=== PATIENT | female | born 1985 | race Caucasian/White ===

== ENCOUNTER 2017-11-29 07:26 | Day surgery (SDC) | payer BC ==
[2017-11-29 08:08] VITALS: BMI 19.7
[2017-11-29 08:22] VITALS: BP 102/73; TEMP 97.6
--- NOTE | 2017-11-29 09:22 | PDOC.FPROB ---
FMR OB H&P: HPI - History of Present Illness Chief Complaint: Abdominal pain Indentification: LLQ History of Present Illness: 32 yo @ 16.4 by IVF w h/o 7cm posterior uterine fibroid (which has been stable in size over last 3 weeks) presents for 3 day h/o intermittent LLQ abdominal pain. Reports associated n/v with the pain. Denies exacerbating or remitting factors. Pain is non-positional and non-exertional. Tylenol has not helped with the pain. Denies associated fever, chills, diarrhea, constipation, vaginal bleeding, LOF, dysuria, hematuria and CVA tenderness. 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 - Social History Social History: Denies tobacco FMR OB H&P: Medications - Current Home Medications: Medication Instructions Recorded Confirmed Type Acetaminophen [Tylenol Extra 500 mg PO PRN PRN 11/29/17 11/29/17 History Strength] Ascorbic Acid [Vitamin C] 1,000 mg PO DAILY 11/29/17 11/29/17 History Vit,Calc76/Iron/Folic 1 tablet PO DAILY 11/29/17 11/29/17 History [Prenatabs Rx Tablet] Allergies/Adverse Reactions: Allergies Allergy/AdvReac Type Severity Reaction Status Date / Time No Known Allergies Allergy Unverified 11/29/17 08:01 FMR OB H&P: ROS - Review of Systems General: denies: fever/chills ENT: denies: nasal congestion, rhinorrhea Cardiovascular: denies: chest pain Respiratory: denies: shortness of breath Gastrointestinal: reports: abdominal pain, nausea, vomiting. denies: diarrhea, constipation Genitourinary (Female): denies: dysuria, hematuria, vaginal discharge, vaginal pain Integumentary: denies: itching, rash Breast: denies: lumps, bumps Endocrine: denies: polyuria Hematologic/Lymphatic: denies: prolonged or excessive bleeding FMR OB H&P: Vital Signs - Maternal Vital signs: Vital Signs - First Documented Temp Pulse Resp BP 97.6 F 71 18 102/73 11/29/17 08:00 11/29/17 08:00 11/29/17 08:00 11/29/17 08:00 - Heart Tones Baseline: 155 [place] contractions every: None FMR OB H&P: Physical Exam - Physical Exam General: NAD, awake, alert and oriented HEENT: normocephalic and atraumatic, EOMI, conjunctiva clear Neck: FROM Heart: RRR, normal S1/S2 General: CTAB, good air movement Abdomen: soft, gravid, other (point tenderness LLQ, Cervix C/T/H, palpable fibroid on cervical exam) Neurological: no focal deficit Skin: no jaundice Psychiatric: good judgement and insight FMR OB H&P: Results - Imaging Imaging: BSUS performed. fibroid being followed clearly visible anterior and to left at the level of the bladder. homogenous in appearance. 7cm in largest diameter. FMR OB H&P: A/P - Problem List (1) Abdominal pain affecting Status: Acute Code(s): O26.899 - OTH RELATED CONDITIONS, UNSPECIFIED TRIMESTER; R10.9 - UNSPECIFIED ABDOMINAL PAIN Assessment and Plan: Possibly secondary to degenerating fibroid - cervical check was c/t/h - UA to r/o nephrolithiasis vs UTI - Kasi stable for dc to home - discussed options regarding evaluation of degenerative fbroid; pt deferred MRI at this time - recommend f/u with primary OB provider and tylenol/motrin PRN for temporary pain relief (2) UTI (urinary tract infection) Status: Acute Qualifiers: Urinary tract infection type: acute cystitis Assessment and Plan: - Pos leuks and few bacteria w/ 0 squams - macrobid script sent - f/u with primary ob provider - d/c to home Disposition: stable Discussion: Date/Time: 11/29/17918 This H&P was discussed with Dr. Rowan who agrees with the above documentation and plan.
[2017-11-29 10:33] LABS: Bilirubin Negative (Negative); Blood, Urine Negative (Negative); Clarity CLEAR (Clear); Glucose, Urine (Dipstick) Negative (Negative); Leukocyte Small (Negative); Nitrite Negative (Negative); Protein, Urine (Dipstick) Negative (Neg-Trace); Urobilinogen 0.2 mg/dL (0.2-1.0)
[2017-11-29 10:34] LABS: Bacteria/HPF Rare-Few HPF (None Seen); Hyaline Casts/LPF 0-3 HYALINE CAST LPF (0-3 Hyaline); Pathc Cast-AUWi Flag 0.29 (0-2.49); Squamous Epithelial 0-3 HPF (0-3); WBC/HPF 0-3 HPF (0-3)
[2017-11-29 10:45] LABS: RBC/HPF None Seen HPF (0-3)
[2017-11-29] MEDS ORDERED: Ibuprofen 200 MG TAB PO SCH (10:45)
== END 2017-11-29 11:07 | disposition home or self-care (01) ==
LOC: L&D/OP 07:26
PROVIDERS: ATTEND Obstetrics & Gynecology
DX: O99.89 Other specified diseases and conditions complicating pregnancy, childbirth and the puerperium (principal); R10.32 Left lower quadrant pain; O34.12 Maternal care for benign tumor of corpus uteri, second trimester; D25.9 Leiomyoma of uterus, unspecified; O23.12 Infections of bladder in pregnancy, second trimester; Z3A.16 16 weeks gestation of pregnancy; Z79.899 Other long term (current) drug therapy
CPT/HCPCS: 76815; 81003; 81015; 99284

== ENCOUNTER 2018-03-24 16:40 | Day surgery (SDC) | payer BC ==
[2018-03-24 17:59] VITALS: BMI 23.8
[2018-03-24 20:13] LABS: Bilirubin Negative (Negative); Blood, Urine Trace (Negative); Clarity CLEAR (Clear); Glucose, Urine (Dipstick) Negative (Negative); Leukocyte Negative (Negative); Nitrite Negative (Negative); Protein, Urine (Dipstick) Negative (Neg-Trace); Specific Gravity, Urine 1.015 (1.002-1.036); Urobilinogen 0.2 mg/dL (0.2-1.0)
[2018-03-24 20:16] LABS: Bacteria/HPF None Seen HPF (None Seen); Hyaline Casts/LPF 0-3 HYALINE CAST LPF (0-3 Hyaline); Squamous Epithelial 0-3 HPF (0-3); WBC/HPF 0-3 HPF (0-3)
--- NOTE | 2018-03-24 20:32 | ULT ---
TRANSABDOMINAL AND TRANSLABIAL PELVIC ULTRASOUND: 03/24/18 PROVIDED CLINICAL HISTORY: Evaluate cervical length. FINDINGS: Single live intrauterine gestation is documented in cephalic presentation with heart rate of 13 2 beats per minute. Cervical length is approximately 2.7 cm. There is no evidence of endocervical fun neling. IMPRESSION: As above. POS: [facility]
--- NOTE | 2018-03-24 22:54 | PRG ---
DATE OF SERVICE: 03/24/2018 OB ER ENCOUNTER PRIMARY FUR EXAMINER: Supa Espinosa DO MS CHIEF COMPLAINT: Abdominal pain. HISTORY OF PRESENT ILLNESS: The patient is a 33-year-old G1, P0 female with an intrauterine at 33 weeks, who is presenting to Labor and Delivery with persistent uterine contractions that began yesterday and are intermittent in nature, but can be as close as every 5 to 7 minutes. The patient reports the contractions are very painful, but are persistent and present. The patient was seen in the office today and reported results of the negative fibronectin and a negative AmniSure test. The patient was given instructions to come to Labor and Delivery should her contractions persist. The patient denies any recent illness, fever, fall, headache, chest pain, shortness of breath, nausea, vomiting, diarrhea, or constipation. She denies any hip problems, knee problems, or muscle weakness. Denies vaginal bleeding or leakage of fluid or change in her discharge or urinary urgency or frequency. The patient does report that she went back to work yesterday and seems to be timed with her increased contractions as the work can be stressful. PAST MEDICAL HISTORY: The patient has uterine fibroid, 6 cm in diameter. PAST SURGICAL HISTORY: [place] teeth extraction and tonsillectomy. SOCIAL HISTORY: Denies drug, alcohol, or tobacco use. ALLERGIES: NO KNOWN DRUG ALLERGIES. MEDICATIONS: vitamins, progesterone injection. OB LABORATORY DATA: Blood type is A positive. Antibody screen is not reported. GC chlamydia negative. REVIEW OF SYSTEMS: Per HPI. PHYSICAL EXAMINATION: VITAL SIGNS: Blood pressure 98/57, heart rate of 71, temperature 98.3, respiratory rate 18. GENERAL: She appears to be in no acute distress. She is alert, oriented, cooperative, pleasant to interact with. HEAD: Normocephalic, atraumatic. LUNGS: Clear to auscultation bilaterally. HEART: Has regular rate and rhythm. ABDOMEN: Gravid and soft. EXTREMITIES: Nontender, nonedematous. : VPIII was collected. heart tracing performed and then NST for abdominal pain and . Fetus noted to have a baseline in the 130s with moderate long-term variability, positive 15 x 15 accelerations, and no decelerations. The tocometer does show some irritability with no real consistent contraction pattern. Cervical length by old transvaginal ultrasound demonstrates length of 2.7 cm. VPIII is negative for Trichomonas, Gardnerella, and Fernanda. Urinalysis is negative for nitrites, leukocyte esterase, and bacteria. ASSESSMENT AND PLAN: The patient is a 33-year-old G1, P0 female with an intrauterine at 33 weeks, having contractions, but no evidence of labor. The patient has a negative fibronectin. Has cervical length reassuring at 2.8 cm and negative VPIII and urinalysis. The patient has reported negative fibronectin and AmniSure test in the clinic. Fetus is reactive and reassuring. The patient is being discharged to home with explanation of these findings. She has been given labor precautions and instructions to follow up with her primary OB as scheduled. Job ID: [id number]
== END 2018-03-24 21:15 | disposition home or self-care (01) ==
LOC: L&D/OP 16:40
PROVIDERS: ATTEND Obstetrics & Gynecology
DX: O47.03 False labor before 37 completed weeks of gestation, third trimester (principal); O34.13 Maternal care for benign tumor of corpus uteri, third trimester; D25.9 Leiomyoma of uterus, unspecified; Z3A.33 33 weeks gestation of pregnancy; Z79.899 Other long term (current) drug therapy
CPT/HCPCS: 76815; 81003; 81015; 82731; 84112; 87480; 87510; 87660; 99284

== ENCOUNTER 2018-04-30 16:11 | Inpatient (IN) | payer BC ==
[2018-04-30 16:47] VITALS: BMI 24.5
--- NOTE | 2018-04-30 17:17 | PDOC.FPROB ---
FMR OB H&P: HPI - History of Present Illness Chief Complaint: Contractions/Vaginal pressure Indentification: 33 year old at 38.2 wks by LMP History of Present Illness: 33 year old at 38.2 wks by LMP presents with contractions since 32 weeks. Patient states today that around 14:30, the contractions intensified and she started to have vaginal pressure. is product of IVF. Patient was checked in clinic on Friday and noted to be 5/75/?. Today, patient was noted to be 5/90/-1. Patient denies any vaginal bleeding, vaginal discharge, or LoF. Primary Care Physician: Dr. 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 - Surgical History Sx History: Tonsillectomy and wisdom teeth removal - Social History Social History: Denies alcohol, tobacco, or drug use - Family History Family History: Insignificant FMR OB H&P: Medications - Current Home Medications: Medication Instructions Recorded Confirmed Type Acetaminophen [Tylenol Extra 500 mg PO PRN PRN 11/29/17 04/30/18 History Strength] Ascorbic Acid [Vitamin C] 1,000 mg PO DAILY 11/29/17 04/30/18 History Vit,Calc76/Iron/Folic 1 tablet PO DAILY 11/29/17 04/30/18 History [Prenatabs Rx Tablet] Allergies/Adverse Reactions: Allergies Allergy/AdvReac Type Severity Reaction Status Date / Time No Known Allergies Allergy Verified 04/30/18 16:48 FMR OB H&P: ROS - Review of Systems General: denies: fever/chills, weight/appetite/sleep changes Eyes: denies: eye pain, vision changes ENT: denies: nasal congestion, frequent nose bleed, sore throat Cardiovascular: denies: chest pain, palpitation, edema Respiratory: denies: cough, congestion, shortness of breath Gastrointestinal: denies: abdominal pain, indigestion, bloating Genitourinary (Female): reports: vaginal pain, contractions, vaginal pressure. denies: dysuria, vaginal discharge, vaginal bleeding Musculoskeletal: denies: pain, stiffness Integumentary: denies: itching, rash Hematologic/Lymphatic: denies: prolonged or excessive bleeding Psychological: denies: depression, anxiety FMR OB H&P: Vital Signs - Maternal Vital signs: Vital Signs - First Documented Temp Pulse Resp BP 98.4 F 80 16 112/72 04/30/18 16:31 04/30/18 16:31 04/30/18 16:31 04/30/18 16:31 - Heart Tones Baseline: 130 Variability: moderate Acceleration: present Deceleration: absent Category: category 1 [place] contractions every: q3-4 min FMR OB H&P: Physical Exam - Physical Exam General: NAD, awake, alert and oriented HEENT: EOMI, MMM, grossly normal vision, grossly normal hearing Neck: supple Heart: RRR, normal S1/S2, no murmurs/rubs/gallops General: CTAB, no respiratory distress Abdomen: soft, gravid, non-tender, bowel sound present Musculoskeletal: normal gait and station, pulses present, FROM in all four extremities Neurological: no tremor, no focal deficit Skin: no rash, capillary refill <2 seconds Lymphatic: no unusual bruising or bleeding, no purpura Psychiatric: intact recent and remote memory, good judgement and insight, normal mood and affect - Pelvic Exam Vulva: normal hair distribution SVE: 5/90/-1, midposition, soft Thakkar score: 11 FMR OB H&P: A/P - Problem List (1) Term Current Visit: Yes Status: Acute Code(s): Z34.80 - ENCOUNTER FOR SUPRVSN OF NORMAL , UNSP TRIMESTER (2) Gestational diabetes, diet controlled Current Visit: Yes Status: Acute Code(s): O24.410 - GESTATIONAL DIABETES MELLITUS IN , DIET CONTROLLED (3) Uterine fibroid Current Visit: Yes Status: Acute Code(s): D25.9 - LEIOMYOMA OF UTERUS, UNSPECIFIED (4) In vitro fertilization Current Visit: Yes Status: Acute Code(s): Z31.83 - ENCOUNTER FOR ASSISTED REPRODCTV FERTILITY PROCEDURE CYCLE (5) Positive GBS test Current Visit: Yes Status: Acute Code(s): B95.1 - STREPTOCOCCUS, GROUP B, CAUSING DISEASES CLASSD ELSWHR Disposition: 33 year old at 38.2 wks presents with contractions and vaginal pressure 1. TIUP w/ contractions - 38.2 wks - contractions q3-4 min - 5/90/-1; unchanged cervical dilation from check in office on Friday - Category I strip 2. A1 GDM - Check BG - Well controlled per patient 3. Uterine fibroid - Noted on sono's during - Was told it should not be concerning 4. IVF - Current result of IVF 5. GBS positive - Will need antibiotics during delivery Dispo: Stable. Plan to recheck in 2 hours. If patient making cervical change, will admit to L&D for expectant management. Discussion: Date/Time: 04/30/181707 This H&P was discussed with Dr. Haro who agrees with the above documentation and plan. OBGYN Faculty Attestation: I have seen and evaluated the patient at bedside. Agree with admission, HX GDM, A1DM...Dstcik here is normal. CX 506cm/90/-1/PIERCEI. Dr Espinosa aware of admclaus Serna Signature: Negin Loredo, DO PGY-2
--- NOTE | 2018-04-30 19:19 | PDOC.EVN ---
Event Note - Event Note Event Note: OBGYN Attending Note: Please see full H&P in other entry Patient fist seen by Dr Loredo 33 yo G1Po s/p IVF, noted to have A1DM, now 5-6cm after observation of 2 hours. Contractions iregular, no ROM. Good FM ROS: complete review of systems completed and negative Past OB: G1 EGA: 38 weeks 2 days Physical: VSSAFEBRILE BP 112/70 Dstick wnl Monitors: FHTs 150s, Cat 1 [place] with irreg ctx A/P: early term, GBS positive...latent labor enetring active phase: 1. Admit 2. [place] aware 3. pain control PRN 4. ABX for GBS 5. Await spontaneous progress
[2018-04-30] MEDS ORDERED: Butorphanol Tartrate 1 MG/ML VIAL SLOW IVP PRN (19:35)
[2018-04-30] MEDS ORDERED: Ondansetron PF 4 MG/2 ML Vial IVP PRN (19:35)
[2018-04-30] MEDS ORDERED: Acetaminophen 500 MG TAB PO PRN (19:35)
[2018-04-30] MEDS ORDERED: Promethazine HCl 25 MG/ML VIAL IM PRN (19:35)
[2018-04-30] MEDS ORDERED: Lidocaine 1% (PF) 30 ML VIAL SC PRN (19:35)
[2018-04-30] MEDS ORDERED: Ibuprofen 800 MG TAB PO PRN (19:35)
[2018-04-30] MEDS ORDERED: NS / Oxytocin 40 units/1000ml 1,000 ML IV PRN (19:35)
--- NOTE | 2018-04-30 19:38 | PDOC.EVN ---
Event Note - Event Note Event Note: Cervical check at /-1 at 19:00. Plan to admit to L&D for expectant management. Dr. Espinosa has been notified. Accucheck 76. Negin Loredo, DO PGY-2
[2018-04-30] MEDS ORDERED: Lactated Ringer's 1,000 ML IV SCH (19:45)
[2018-04-30] MEDS ORDERED: Penicillin G Potassium 5 MILL.UNITS in Sodium Chloride 0.9% 100 ML IVPB SCH (20:00)
[2018-04-30 21:27] LABS: Hemoglobin 12.9 g/dL (12.0-16.0); Mean Corpuscular HGB CONC 33.6 g/dL (32.0-36.0); Mean Corpuscular Hemoglobin 31.8 pg (27.0-31.0); Mean Corpuscular Volume 94.8 fL (78.0-98.0); Mean Platelet Volume 8.3 fL (7.4-10.4); Platelet Count 234 thou/uL (130-400); RBC Distribution Width 12.8 % (11.5-14.5); Red Blood Cell (RBC) Count 4.07 mill/uL (4.20-5.40); White Blood Cell (WBC) Count 10.2 thou/uL (4.8-10.8)
[2018-05-01] MEDS: Penicillin G 2.5 MILL.units 2.5 MILL.UNITS in Premix Bag 1 BAG IVPB SCH ×2 (00:17→04:27)
[2018-05-01 01:32] LABS: HBSAg Index 0.16 S/CO (0-0.99); Hep B Surf Ag Non-Reactive S/CO (NonReactive)
--- NOTE | 2018-05-01 08:21 | PDOC.EVN ---
Event Note - Event Note Event Note: Pt admitted w SVE 5cm by OBTon RODRÍGUEZ. Contractions stopped around midnight, pt is comfortable, and desires to go home as SVE is same as exam last Friday in the office. L and D warnings given, see dictation for DC summary.
[2018-05-01 09:38] VITALS: BP 110/72; TEMP 97.6
[2018-05-01 09:54] LABS: Syphilis Antibody Nonreactive (Nonreactive); Syphilis Antibody Index 0.04 S/CO (<1.00 Non-Reactive)
--- NOTE | 2018-05-01 11:44 | DIS ---
DATE OF ADMISSION: 04/30/2018 DATE OF DISCHARGE: 05/01/2018 ADMISSION DIAGNOSIS: Term , regular contractions, 5 cm dilation. DISCHARGE DIAGNOSIS: A 38 weeks and 3 days, resolution of contractions, no cervical change. status reassuring. HOSPITAL COURSE: Melody Montana was admitted by the OB hospitalist on 04/30/2018, with regular contractions and a cervix that was 5 cm. Of note, the patient's cervix was 5 cm posterior in the office approximately 1 week prior as well. The patient did report having contractions throughout the day yesterday as they became more frequent and more intense. She presented to Labor and Delivery for evaluation. The patient's is significant for GBS positive, a known fibroid, and history of in vitro fertilization. Overnight, the patient reports that her contractions became less intense, spaced out and eventually stopped this morning. She has not had any loss of fluid or vaginal bleeding. Baby is moving well. Her vital signs remained normal overnight. The patient understands that she is less than 39 weeks. She is not a candidate for induction of labor at this time. She also is aware of the GBS status and the recommendation for penicillin when labor does return. The patient desires low intervention. At this time, she requests to be discharged home with close monitoring. Her cervix was reexamined by me this morning and is 5 cm, 75% effaced and posterior consistent with her exam last week. Labor and delivery warnings were reinforced. The patient was discharged home in good condition. Job ID: [id number]
== END 2018-05-01 08:24 | disposition home health service (06) | DRG 833 ==
LOC: L&D/OP 16:11 → L&D-LIB 19:46
PROVIDERS: ADMIT Obstetrics & Gynecology; ATTEND Obstetrics & Gynecology
DX: O24.410 Gestational diabetes mellitus in pregnancy, diet controlled (principal); O99.820 Streptococcus B carrier state complicating pregnancy; O34.13 Maternal care for benign tumor of corpus uteri, third trimester; D25.9 Leiomyoma of uterus, unspecified; Z3A.38 38 weeks gestation of pregnancy; Z90.89 Acquired absence of other organs
CPT/HCPCS: 36416; 85027; 86780; 86850; 86900; 86901; 87340; 99285; J2540; J7050

== ENCOUNTER 2018-05-03 16:51 | Inpatient (IN) | payer BC ==
[2018-05-03 17:22] VITALS: BMI 24.5
--- NOTE | 2018-05-03 17:55 | PDOC.LDHP ---
Labor and Delivery H&P Chief complaint: contractions, loss of fluid HPI: Location: Triage Patient of Dr Espinosa Tiem: [id number] HPI: 33 yo g1 at 38 weeks 5 days, was here last Thrusday with contractions and observed overnight, no cervical change past 5-6cm. here for possible LOF. S/P IVF this and HX uterine fibroid. Review of Systems: complete ROS performed and negative as per HPI Current gestational age (weeks): 38 (5 days) Dating criteria: last menstrual period, other (IVF) Grav: 1 Para: 0 OB History Details: HX IVF; GBS pos Current complications: none Abnormal US findings: Yes (HX uterine fibroid) Current medications: pre- vitamins Allergies/Adverse Reactions: Allergies Allergy/AdvReac Type Severity Reaction Status Date / Time No Known Allergies Allergy Verified 04/30/18 16:48 Social history: none - Physical Exam Vital signs reviewed and normal: yes General: NAD Heart: RRR FHT: category 1 [place] contractions every: every 3-10 minutes, irregular - Assessment Possible ROM at early term; GBS pos - Plan Plan: observation in L&D (amnisures ent. If positive, we will admit to Dr Espinosa. If negative, I will perform SSE to confirm. Observe for cervical change. GBS pos)
[2018-05-03 17:58] LABS: Amnisure Internal Control QC ACCEPTABLE (ACCEPTABLE); Amnisure Test RUPTURE DETECTED (No Rupture)
[2018-05-03] MEDS ORDERED: Ibuprofen 800 MG TAB PO PRN (18:13)
[2018-05-03] MEDS ORDERED: HYDROcodone/Acetaminophen 5/325 mg Tablet PO PRN ×2 (18:13)
[2018-05-03] MEDS ORDERED: Butorphanol Tartrate 1 MG/ML VIAL SLOW IVP PRN (18:13)
[2018-05-03] MEDS ORDERED: NS / Oxytocin 40 units/1000ml 1,000 ML IV PRN (18:13)
[2018-05-03] MEDS ORDERED: Lidocaine 1% (PF) 30 ML VIAL SC PRN (18:13)
[2018-05-03] MEDS ORDERED: Promethazine HCl 25 MG/ML VIAL IM PRN (18:13)
[2018-05-03] MEDS ORDERED: Penicillin G Potassium 5 MILL.UNITS in Sodium Chloride 0.9% 100 ML IVPB SCH (18:15)
--- NOTE | 2018-05-03 18:16 | PDOC.EVN ---
Event Note - Event Note Event Note: Amnisure positive. I will admit to L&D. Start GBS coverage. I have notified Dr Espinosa of her admission, awaiting confirmation of reciept of message. Patient desires low intervention.
--- NOTE | 2018-05-03 18:23 | PDOC.EVN ---
Event Note - Event Note Event Note: HX GDM this - diet controlled. Last Dstick while in L&D was normal. I will add a glucose to admit labs and HbAic for record.
[2018-05-03 18:43] LABS: Hemoglobin 12.3 g/dL (12.0-16.0); Mean Corpuscular HGB CONC 33.6 g/dL (32.0-36.0); Mean Corpuscular Hemoglobin 31.7 pg (27.0-31.0); Mean Corpuscular Volume 94.1 fL (78.0-98.0); Mean Platelet Volume 8.4 fL (7.4-10.4); Platelet Count 221 thou/uL (130-400); RBC Distribution Width 12.9 % (11.5-14.5); Red Blood Cell (RBC) Count 3.88 mill/uL (4.20-5.40); White Blood Cell (WBC) Count 8.1 thou/uL (4.8-10.8)
--- NOTE | 2018-05-03 18:49 | PDOC.EVN ---
Event Note - Event Note Event Note: My exam is 5-6/50/-1, cephalic. If no spont ctx by 0200 or so, we will begin augmentation. Time allotted for spont entry into labor as she desires low intervention. Dr Espinosa has requested our team to cover tonight until AM. I notified the team coverage of patient's arrival at her request.
[2018-05-03 18:54] LABS: Glucose 74 mg/dL (70-105)
[2018-05-03] MEDS: Lactated Ringer's 1,000 ML IV SCH (18:57)
[2018-05-03 18:59] LABS: Hemoglobin A1c 5.2 % (4.0-6.0)
[2018-05-03 19:16] LABS: HBSAg Index 0.22 S/CO (0-0.99); HIV (1/2) Antibody/Antigen Non-Reactive (NonReactive); HIV 1/2 INDEX 0.05 S/CO (<1.00); Hep B Surf Ag Non-Reactive S/CO (NonReactive)
[2018-05-03 19:22] LABS: Syphilis Antibody Nonreactive (Nonreactive); Syphilis Antibody Index 0.04 S/CO (<1.00 Non-Reactive)
[2018-05-04] MEDS: Penicillin G 2.5 MILL.units 2.5 MILL.UNITS in Premix Bag 1 BAG IVPB SCH ×8 (02:57→22:21)
[2018-05-04] MEDS: Lactated Ringer's 1,000 ML IV SCH ×4 (02:58→22:21)
[2018-05-04] MEDS: NS w/ Oxytocin 10 units 500 ML IV SCH ×2 (02:58→22:21)
[2018-05-04] MEDS ORDERED: Fentanyl 4 mcg/Bup 0.1% Cadd 100 ML ONE (08:18)
--- NOTE | 2018-05-04 08:20 | PDOC.LDPN ---
Labor & Delivery Progress Note - Subjective Subjective: painful contractions - Objective Vital signs reviewed and normal: yes General: breathing through contractions Dilation: 6 Effacement: 90% Station: 0 FHT: category 1 AROM: bloody fluid - Assessment (1) 38 weeks gestation of Code(s): Z3A.38 - 38 WEEKS GESTATION OF Current Visit: Yes Status : Acute (2) Rupture of membranes with clear amniotic fluid Code(s): URH2313 - Current Visit: Yes Status: Acute Plan: labor augmentation -: A/P: Transitioning to labor w prolonged ROM, on pitocin, forebag ruptured. FHT reassuring.
[2018-05-04] MEDS ORDERED: Lidocaine 1.5%/Epinephrine 1:200,000 5 ML AMPUL IJ ONE (08:34)
[2018-05-04] MEDS ORDERED: diphenhydrAMINE 50 MG/ML VIAL IVP PRN (08:43)
[2018-05-04] MEDS ORDERED: Eucerin (Mineral Oil/Petrolatum,White) 30 gm Jar TOP PRN (08:43)
[2018-05-04] MEDS ORDERED: Lactated Ringer's 500 ML IV PRN (08:43)
[2018-05-04] MEDS ORDERED: Promethazine HCl 25 MG/ML VIAL IM PRN ×2 (08:43→12:29)
[2018-05-04] MEDS ORDERED: Ondansetron PF 4 MG/2 ML Vial IVP PRN ×2 (08:43→12:29)
[2018-05-04] MEDS ORDERED: Naloxone HCl 0.4 mg/ml Vial IVP PRN ×2 (08:43)
[2018-05-04] MEDS ORDERED: ePHEDrine/0.9% NaCl/PF SYRINGE 50 mg/10 ml SLOW IVP PRN (08:43)
[2018-05-04] MEDS ORDERED: Acetaminophen 325 MG TAB PO PRN (08:43)
[2018-05-04] MEDS ORDERED: Communication Order-Pharmacy FS SCH (08:45)
[2018-05-04] MEDS ORDERED: Fentanyl 4 mcg/Bupivacaine 0.1% Cassette 100 ML EPIDURAL SCH (08:45)
[2018-05-04] MEDS ORDERED: HYDROcodone/Acetaminophen 5/325 mg Tablet PO PRN ×2 (12:29)
[2018-05-04] MEDS ORDERED: Preparation H Ointment 28 GM TUBE PR PRN (12:29)
[2018-05-04] MEDS ORDERED: Bisacodyl 10 MG SUPP PR PRN (12:29)
[2018-05-04] MEDS ORDERED: Milk Of Magnesia 30 ML UDCUP PO PRN (12:29)
[2018-05-04] MEDS ORDERED: Benzocaine/Menthol 20-0.5% 60 ML CAN TOP PRN (12:29)
[2018-05-04] MEDS ORDERED: Adacel (T-DAP) 0.5 ML SYRINGE IM ONE (12:29)
[2018-05-04] MEDS ORDERED: diphenhydrAMINE 25 MG CAP PO PRN (12:29)
[2018-05-04] MEDS ORDERED: Lanolin Ointment 7 GM TUBE TOP PRN (12:29)
--- NOTE | 2018-05-04 12:29 | PDOC.OPDEL ---
OB Operative/Delivery Note Delivery Dr/Surgeon: Jesús Pre-Delivery Diagnosis: ruptured membrane (transitioned to active labor w pitocin) Weeks gestation: 38 Anesthesia: epidural - Findings A Sex: female - 1 min: 9 - 5 min: 9 - Additional Findings/Plan Placenta delivered: spontaneous Repaired Obstetrical Laceration: 2nd degree Estimated blood loss: 400ml Post delivery plan: routine recovery
[2018-05-04] MEDS ORDERED: NS / Oxytocin 40 units/1000ml 1,000 ML IV SCH (12:30)
[2018-05-04] MEDS: Ibuprofen 800 MG TAB PO SCH ×2 (14:47→21:35)
[2018-05-04] MEDS: Docusate Calcium (SURFAK) 240 MG CAP PO SCH (21:35)
[2018-05-05] MEDS: Ibuprofen 800 MG TAB PO SCH ×3 (05:03→20:04)
[2018-05-05] MEDS: Docusate Calcium (SURFAK) 240 MG CAP PO SCH ×2 (08:49→20:04)
[2018-05-05] MEDS: Prenatal Vitamin 1 TAB PO SCH (08:49)
[2018-05-05] MEDS: Penicillin G 2.5 MILL.units 2.5 MILL.UNITS in Premix Bag 1 BAG IVPB SCH ×4 (09:01→20:04)
--- NOTE | 2018-05-05 15:35 | PDOC.PP ---
Post Progress Note Post Day #: 1 Subjective: doing well, no concerns, nursing well, min lochia, min discomfort PO intake tolerated: yes Flatus: yes Ambulation: yes Vital Signs (12 hours) Temp Pulse Resp BP Pulse Ox 05/05/18 11:43 98.2 F 83 20 108/62 05/05/18 08:06 98.1 F 75 20 112/75 96 05/05/18 03:36 97.6 F 74 16 108/62 Weight Weight 152 lb - Physical Examination General: NAD Respiratory: non-labored breathing Abdominal: no distention Fundus firm & at: below umb Neurological: no gross focal deficits Psychiatric: A&Ox3, normal affect Result Diagrams: 05/03/18 18:34 05/03/18 18:34 Additional Labs: Post Labs Blood Type A POSITIVE 05/03/18 18:34 Hep Bs Antigen Non-Reactive S/CO (NonReactive) 05/03/18 18:34 (1) 38 weeks gestation of Code(s): Z3A.38 - 38 WEEKS GESTATION OF Status: Acute (2) Rupture of membranes with clear amniotic fluid Code(s): [id number] - Status: Acute - Assessment/Plan PPD1 doing well, no concerns, plan for DC tomorrow.
[2018-05-05] MEDS: Lactated Ringer's 1,000 ML IV SCH ×2 (18:14→20:05)
[2018-05-06] MEDS: NS w/ Oxytocin 10 units 500 ML IV SCH (00:08)
[2018-05-06] MEDS: Ibuprofen 800 MG TAB PO SCH (05:31)
[2018-05-06 08:46] VITALS: BP 104/70; TEMP 98.1
[2018-05-06] MEDS: Docusate Calcium (SURFAK) 240 MG CAP PO SCH (08:46)
[2018-05-06] MEDS: Prenatal Vitamin 1 TAB PO SCH (08:46)
--- NOTE | 2018-05-06 10:46 | PDOC.PP ---
Post Progress Note Post Day #: 2 Subjective: doing well, minimal discomfort, nursing well PO intake tolerated: yes Flatus: yes Ambulation: yes Vital Signs (12 hours) Temp Pulse Resp BP Pulse Ox 05/06/18 08:45 98.1 F 69 20 104/70 97 Weight Weight 152 lb - Physical Examination General: NAD Respiratory: non-labored breathing Abdominal: no distention Psychiatric: A&Ox3, normal affect Result Diagrams: 05/03/18 18:34 05/03/18 18:34 Additional Labs: Post Labs Blood Type A POSITIVE 05/03/18 18:34 Hep Bs Antigen Non-Reactive S/CO (NonReactive) 05/03/18 18:34 (1) 38 weeks gestation of Code(s): Z3A.38 - 38 WEEKS GESTATION OF Status: Acute (2) Rupture of membranes with clear amniotic fluid Code(s): LTJ2244 - Status: Acute - Assessment/Plan PPD2 doing well, no concerns, plan for DC today.
== END 2018-05-06 13:00 | disposition home or self-care (01) | DRG 807 ==
LOC: L&D/OP 16:51 → L&D 19:30 → 3SW 05-04 16:08
PROVIDERS: ADMIT Obstetrics & Gynecology; ATTEND Obstetrics & Gynecology
PROC: 10E0XZZ Delivery of Products of Conception, External Approach (ICD-10-PCS; principal; 2018-05-04)
PROC: 0KQM0ZZ Repair Perineum Muscle, Open Approach (ICD-10-PCS; 2018-05-04)
PROC: 10907ZC Drainage of Amniotic Fluid, Therapeutic from Products of Conception, Via Natural or Artificial Opening (ICD-10-PCS; 2018-05-04)
DX: O42.92 Full-term premature rupture of membranes, unspecified as to length of time between rupture and onset of labor (principal); Z37.0 Single live birth; Z3A.38 38 weeks gestation of pregnancy; O70.1 Second degree perineal laceration during delivery
CPT/HCPCS: 36415; 51702; 82947; 83036; 84112; 85027; 86780; 86850; 86900; 86901; 87340; 87389; 90715; 99285; J2001; J2540; J3490; J7050